=== PATIENT | male | born 1970 | race Caucasian/White ===

== ENCOUNTER → 2016-08-18 | Outpatient (CLI) | payer OTHER ==
[~2016-08-18] MED LIST: ASPCH81X PO; EPP3/2 INJ; LSN/10125 PO
--- NOTE | 2016-08-18 14:59 | DIAGNOSTIC IMAGING REPORT ---
LEFT ANKLE MIN 3 VIEWS ROUTINE CLINICAL HISTORY: ANKLE PAIN pain COMPARISON: None. DISCUSSION: Deformity distal tibial shaft probably secondary to old posttraumatic change. Mild degenerative change of the ankle mortise. Small heel spur. Ossification Achilles tendon insertion. There is no evidence for soft tissue swelling. IMPRESSION: Mild degenerative change of the ankle. No acute process. Old healed fracture distal tibial shaft. Electronically signed by: Raciel Harris M.D. 08/18/2016 2:57 PM Dictated Date/Time: 08/18/2016 2:57 PM
== END | disposition home or self-care (01) ==
LOC: C.RAD 14:33
PROVIDERS: ATTEND Family Medicine
DX: S99.912A Unspecified injury of left ankle, initial encounter (principal); M25.572 Pain in left ankle and joints of left foot; M77.32 Calcaneal spur, left foot; X58.XXXA Exposure to other specified factors, initial encounter

== ENCOUNTER → 2017-10-17 | Outpatient (CLI) | payer BC ==
--- NOTE | 2017-10-17 08:54 | DIAGNOSTIC IMAGING REPORT ---
(TESTICULAR) SCROTUM-CONT CLINICAL HISTORY: 47 years-old Male presenting with TESTICULAR PAIN,HX OF INGUINAL HERNIA,R/O HERNIA. TECHNIQUE: Real-time grayscale and color and spectral Doppler ultrasound imaging of the scrotum was performed. COMPARISON: 09/19/2010. FINDINGS: Right testis: Normal echogenicity and echotexture. Testis measures 4.9 x 2.5 x 3.0 cm. Normal color Doppler flow and arterial and venous waveforms in the testicular parenchyma. Epididymal head normal. No hydrocele. No varicocele. Left testis: Normal echogenicity and echotexture. Testis measures 4.5 x 2.4 x 2.9 cm. Normal color Doppler flow and arterial and venous waveforms in the testicular parenchyma. Epididymal head normal. No hydrocele. Left varicocele may be present. Symmetric perfusion of the testes. IMPRESSION: 1. No evidence of testicular torsion. 2. Left varicocele. Electronically signed by: Quinton Chand M.D. 10/17/2017 8:53 AM Dictated Date/Time: 10/17/2017 8:49 AM
--- NOTE | 2017-10-17 08:54 | DIAGNOSTIC IMAGING REPORT ---
ABDOMEN ULTRASOUND FOR HERNIA CLINICAL HISTORY: Testicular pain, hx of inguinal hernia COMPARISON STUDY: None. FINDINGS: Real-time sonographic imaging of the left inguinal region was performed. No evidence for an inguinal hernia. No masses or fluid collections within the left groin. IMPRESSION: No evidence for a left inguinal hernia. Electronically signed by: Adebayo Harrell M.D. 10/17/2017 8:52 AM Dictated Date/Time: 10/17/2017 8:50 AM
== END | disposition home or self-care (01) ==
LOC: C.ULTR 07:46
PROVIDERS: ATTEND Physician Assistant
DX: I86.1 Scrotal varices (principal); R10.32 Left lower quadrant pain; Z88.8 Allergy status to other drugs, medicaments and biological substances